=== PATIENT | female | born 1985 | race American Indian/Alaskan Native ===

== ENCOUNTER 2021-05-12 13:56 | Outpatient (REF) | payer MEDICAID, SELFPAY ==
[2021-05-12 14:18] LABS: MANUAL DIFF FLAG NO
[2021-05-12 14:53] LABS: Basophils Percent Auto 0.4 % (0-2); Eosinophils Absolute Auto 0.1 X10*3/uL (0.0-0.4); Eosinophils Percent Auto 2.2 % (0-4); Hematocrit 39.5 % (37.0-47.0); Hemoglobin 12.9 g/dl (12.0-16.0); Imm Gran Abs Auto 0.02 X10*3/uL (0.00-0.03); Imm Gran Pct Auto 0.4 % (0.0-0.4); Lymphocytes Absolute Auto 1.6 X10*3/uL (1.2-4.9); Lymphocytes Percent Auto 28.8 % (20-40); Mean Corpuscular HGB Conc 32.7 g/dl (31.0-35.0); Mean Corpuscular Hemoglobin 30.9 pg (27.0-33.0); Mean Corpuscular Volume 94.7 fL (80.0-98.0); Mean Platelet Volume 12.4 fL (9.4-12.3); Monocytes Absolute Auto 0.4 X10*3/uL (0.1-1.2); Monocytes Percent Auto 7.6 % (2-11); Neutrophils Absolute Auto 3.4 x10*3/uL (2.0-8.3); Neutrophils Percent Auto 60.6 % (45-73); Platelet Count 239 X10*3/uL (160-400); Red Blood Count 4.17 X10*6/uL (4.20-5.50); Red Cell Distribution Width 13.9 % (11.0-16.0); White Blood Count 5.5 X10*3/uL (4.8-10.8)
[2021-05-12 15:22] LABS: Alanine Aminotransferase 13 U/L (0-31); Albumin Level 4.3 g/dL (3.5-5.0); Alkaline Phosphatase 46 U/L (39-117); Anion Gap 11 (12-20); Aspartate Amino Transferase 16 U/L (5-31); Bilirubin Total 1.2 mg/dL (0.0-1.0); Blood Urea Nitrogen 10 mg/dL (9-16); Carbon Dioxide 27 mmol/L (22-29); Chloride 105 mmol/L (96-108); Cholesterol 165 mg/dL; Estimated Glomerular Filt Rate > 60; Glucose Random 87 mg/dL (60-115); HDL Cholesterol 62 mg/dL; LDL Cholesterol Calculated 92 mg/dl; Phosphorus 2.6 mg/dL (2.7-4.5); Potassium 4.6 mmol/L (3.3-5.1); Sodium 138 mmol/L (135-145); Total Protein 7.3 g/dL (6.5-8.0); Triglycerides 59 mg/dL
[2021-05-12 15:29] LABS: Calcium 10.8 mg/dL (8.4-10.2)
[2021-05-12 15:34] LABS: Thyroid Stimulating Hormone 0.58 uIU/mL (0.32-4.0); Vitamin D 25-OH Total 16.3 ng/mL (>30)
[2021-05-13 14:51] LABS: Calcium (PTHI) 10.8 mg/dL (8.6-10.2); PTHI 92 pg/mL (14-64)
== END 2021-05-12 13:57 | disposition home or self-care (01) ==
LOC: HO.LAB 13:56
PROVIDERS: Visit Provider Internal Medicine
DX: Z00.01 Encounter for general adult medical examination with abnormal findings (principal); R63.0 Anorexia; R19.7 Diarrhea, unspecified; E21.3 Hyperparathyroidism, unspecified
CPT/HCPCS: 36415; 80053; 80061; 82306; 83970; 84100; 84443; 85025

== ENCOUNTER → 2021-07-10 08:13 | Outpatient (REF) | payer MEDICAID, SELFPAY ==
--- NOTE | ~2021-07-10 | NM_ITS ---
EXAMINATION: NM PARATHYROID SCAN CLINICAL INFORMATION: Hyperthyroidism. Primary hyperparathyroidism. COMPARISON: No previous thyroid or parathyroid imaging studies are available for comparison. TECHNIQUE: A double radionuclide study of the thyroid bed region and upper chest in multiple projections was performed 4 hours after the oral administration of 959 microcuries I-123 sodium iodide and immediately following the intravenous administration of 25 mCi Tc-99m sestamibi. Repeat imaging was performed 2 hours later. The iodide images were electronically subtracted from the sestamibi images using different weighting factors. FINDINGS: There is homogeneous uptake of radioiodine throughout both lobes. The thyroid gland appears to be normal in size and shape. There are no focal areas of increased or diminished uptake. The trapping function is moderately increased diffusely, without a focal component. Technetium 99m sestamibi images demonstrate homogeneous thyroid activity. There are no focal areas of increased or decreased Technetium 99m sestamibi activity. Computer-generated digital subtraction images reveal no evidence of excess sestamibi activity. NM/NM parathyroid IMPRESSION: No evidence of excess sestamibi activity suggestive of parathyroid adenoma or hyperplasia. There is homogeneous uptake of radioiodine in the thyroid gland which is also normal in size and shape. The trapping function is diffusely increased, and in the clinical setting of hyperthyroidism, this is compatible with the diagnosis of Graves' disease. No thyroid nodules are visualized.
== END ==
LOC: HO.NUCMED 08:13
PROVIDERS: Visit Provider Internal Medicine
DX: E21.0 Primary hyperparathyroidism (principal)
CPT/HCPCS: 78070; A9500; A9516

== ENCOUNTER 2021-09-11 11:45 | Outpatient (REF) | payer MEDICAID, SELFPAY ==
[2021-09-11 13:58] LABS: Thyroid Stimulating Hormone 0.57 uIU/mL (0.32-4.0); Vitamin D 25-OH Total 15.1 ng/mL (>30)
[2021-09-11 14:03] LABS: Calcium 10.1 mg/dL (8.4-10.2); Phosphorus 2.1 mg/dL (2.7-4.5)
[2021-09-14 03:56] LABS: Calcium (PTHI) 12.2 mg/dL (8.6-10.2); PTHI 92 pg/mL (16-77)
== END 2021-09-11 11:46 | disposition home or self-care (01) ==
LOC: HO.LAB 11:45
PROVIDERS: PCP Internal Medicine; Visit Provider Internal Medicine
DX: E21.0 Primary hyperparathyroidism (principal); E55.9 Vitamin D deficiency, unspecified; M25.571 Pain in right ankle and joints of right foot; M96.0 Pseudarthrosis after fusion or arthrodesis
CPT/HCPCS: 36415; 82306; 82310; 83970; 84100; 84443

== ENCOUNTER 2021-09-15 08:15 | Outpatient (REF) | payer MEDICAID, SELFPAY | END 2021-09-15 08:16 | disposition home or self-care (01) | LOC: HO.HOSX 08:15 | PROVIDERS: Visit Provider Physician Assistant | DX: Z13.89 Encounter for screening for other disorder (principal) ==

== ENCOUNTER 2024-05-18 13:47 | Outpatient (REF) | payer MEDICAID, SELFPAY ==
[2024-05-18 14:01] LABS: MANUAL DIFF FLAG NO
[2024-05-18 14:43] LABS: Basophils Percent Auto 0.8 % (0-2); Eosinophils Percent Auto 0.4 % (0-4); Hematocrit 38.8 % (37.0-47.0); Hemoglobin 13.1 g/dl (12.0-16.0); Imm Gran Abs Auto 0.01 X10*3/uL (0.00-0.03); Imm Gran Pct Auto 0.2 % (0.0-0.4); Lymphocytes Absolute Auto 1.6 X10*3/uL (1.2-4.9); Lymphocytes Percent Auto 31.2 % (20-40); Mean Corpuscular HGB Conc 33.8 g/dl (31.0-35.0); Mean Corpuscular Volume 94.6 fL (80.0-98.0); Mean Platelet Volume 11.6 fL (9.4-12.3); Monocytes Absolute Auto 0.3 X10*3/uL (0.1-1.2); Monocytes Percent Auto 5.2 % (2-11); Neutrophils Absolute Auto 3.2 x10*3/uL (2.0-8.3); Neutrophils Percent Auto 62.2 % (45-73); Platelet Count 221 X10*3/uL (160-400); Red Cell Distribution Width 13.9 % (11.0-16.0); White Blood Count 5.2 X10*3/uL (4.8-10.8)
[2024-05-18 15:08] LABS: Parathyroid Hormone Intact 116.9 pg/mL (8.7-77.1)
[2024-05-18 15:10] LABS: Alanine Aminotransferase 18 U/L (0-31); Albumin Level 4.3 g/dL (3.5-5.0); Alkaline Phosphatase 35 U/L (39-117); Anion Gap 7 (12-20); Aspartate Amino Transferase 18 U/L (5-31); Bilirubin Total 1.3 mg/dL (0.0-1.0); Blood Urea Nitrogen 12 mg/dL (9-16); Calcium 9.5 mg/dL (8.4-10.2); Carbon Dioxide 29 mmol/L (22-29); Chloride 107 mmol/L (96-108); Estimated Glomerular Filt Rate > 60; Glucose Random 82 mg/dL (60-115); Phosphorus 2.6 mg/dL (2.7-4.5); Potassium 3.7 mmol/L (3.3-5.1); Sodium 139 mmol/L (135-145); Total Protein 7.2 g/dL (6.5-8.0)
[2024-05-18 15:27] LABS: Vitamin D 25-OH Total 22.8 ng/mL (>30)
== END 2024-05-18 13:48 | disposition home or self-care (01) ==
LOC: HO.LAB 13:47
PROVIDERS: PCP Internal Medicine; Visit Provider Internal Medicine
DX: Z00.00 Encounter for general adult medical examination without abnormal findings (principal); E83.52 Hypercalcemia; F32.2 Major depressive disorder, single episode, severe without psychotic features; Z90.710 Acquired absence of both cervix and uterus
CPT/HCPCS: 36415; 80053; 82306; 83970; 84100; 85025

== ENCOUNTER 2024-06-19 14:06 | Outpatient (AMB) | payer MEDICAID, SELFPAY ==
[2024-06-19 14:32] VITALS: BP 122/82; PULSE 65
--- NOTE | 2024-06-19 14:32 | A.OFFVIS_ITS ---
Vital Signs 06/19/24 14:32 Weight 100 lb 15.547 oz BP 122/82 Blood Pressure Location Lt brachial Position Sitting Pulse 65 Pulse Source Pulse Oximeter Intake Visit Reasons: Hyperparathyroidism Intake Note: Patient present today for Hyperparathyroidism. 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 She is noted to have elevated calcium levels back in April 2021 along with a concurrently elevated PTH of 92. Calcium was 10.8 with an albumin of 4.3, corrected calcium would be 10.5. Vitamin-D level was low at 16.3. Subsequently in June 2021 she had a parathyroid scan which did not identify any parathyroid adenoma or enlargement. Labs 09/11/2021: Showed calcium of 10.1, albumin not given, phosphorus low at 2.1, vitamin-D of 15.1, PTH again elevated at 92, another calcium run with a different assay was 12.2 on that date. Labs most recently 05/18/2024 showed normal kidney function with EGFR greater than 60, calcium normal at 9.5 with an albumin of 4.3, corrected calcium would be 9.2, phosphorus low at 2.6, vitamin-D of 22.8 and PTH of 116.9. In the setting of vitamin-D deficiency, she could have a component of both primary and secondary hyperparathyroidism. No known history of kidney stones. Fracture in right ankle after jumping from third floor, in 2012 No other fractures No family history of kidney stones or calcium problems Prescribed vitamin D 78774 units once weekly on 06/15/24 , hasnt started it yet No calcium supplements No milk, no cheese, no yogurt No constipation. No abd pain. No polyuria. Smokes marijuana daily No tobacco use Alcohol : occasional No drug use Works in [employer] Physical exam General: sitting comfortably in no acute distress HEENT: normocephalic/atraumatic, moist oral mucosa Neck: supple, symmetrical, no thyromegaly , no dorsocervical or supraclavicular fat pads Cardiac: normal heart sounds Pulm: normal breath sounds B/L, no added breath sounds Abd: not distended, no tenderness Extremities: no edema, no signs of myxedema Neuro: AAO x3, Speech: normal, no facial droop, moving all 4 extremities Laboratory Tests 05/12/21 09/11/21 05/18/24 14:16 12:29 13:59 Creatinine 0.83 Estimated GFR > 60 Calcium 10.8 H 10.1 D 9.5 Phosphorus 2.1 L 2.6 L Albumin 4.3 4.3 25-OH Vitamin D Total 16.3 15.1 22.8 L TSH 0.57 PTH Intact 92 H 92 H 116.9 H Calcium (PTH Intact) 10.8 H 12.2 H NM PARATHYROID SCAN 07/10/21 CLINICAL INFORMATION: Hyperthyroidism. Primary hyperparathyroidism. COMPARISON: No previous thyroid or parathyroid imaging studies are available for comparison. TECHNIQUE: A double radionuclide study of the thyroid bed region and upper chest in multiple projections was performed 4 hours after the oral administration of 959 microcuries I-123 sodium iodide and immediately following the intravenous administration of 25 mCi Tc-99m sestamibi. Repeat imaging was performed 2 hours later. The iodide images were electronically subtracted from the sestamibi images using different weighting factors. FINDINGS: There is homogeneous uptake of radioiodine throughout both lobes. The thyroid gland appears to be normal in size and shape. There are no focal areas of increased or diminished uptake. The trapping function is moderately increased diffusely, without a focal component. Technetium 99m sestamibi images demonstrate homogeneous thyroid activity. There are no focal areas of increased or decreased Technetium 99m sestamibi activity. Computer-generated digital subtraction images reveal no evidence of excess sestamibi activity. NM/NM parathyroid IMPRESSION: No evidence of excess sestamibi activity suggestive of parathyroid adenoma or hyperplasia. There is homogeneous uptake of radioiodine in the thyroid gland which is also normal in size and shape. The trapping function is diffusely increased, and in the clinical setting of hyperthyroidism, this is compatible with the diagnosis of Graves' disease. No thyroid nodules are visualized. [facility] Medical History (Updated 06/19/24 @ 15:05 by Frances Rolle MD) Vitamin D deficiency Hyperparathyroidism History of endometriosis Surgical History History of partial hysterectomy Family History Mother Panic attack Father No problems noted. Social History Alcohol intake: current Alcohol intake frequency: holidays/special occasions only Patient Tobacco Use Status: Never used Tobacco Physical Exam Vital Signs: Last Vital Signs Pulse 65 06/19/24 14:32 BP 122/82 06/19/24 14:32 Assessment & Plan Assessment & Plan (1) Hyperparathyroidism: Code(s): E21.3 - Hyperparathyroidism, unspecified Category: Medical Plan: 38-year-old female coming in today for initial evaluation of hyperpar athyroidism. She is noted to have elevated calcium levels back in April 2021 along with a concurrently elevated PTH of 92. Calcium was 10.8 with an albumin of 4.3, corrected calcium would be 10.5. Vitamin-D level was low at 16.3. Subsequently in June 2021 she had a parathyroid scan which did not identify any parathyroid adenoma or enlargement. Labs 09/11/2021: Showed calcium of 10.1, albumin not given, phosphorus low at 2.1, vitamin-D of 15.1, PTH again elevated at 92, another calcium run with a different assay was 12.2 on that date. Labs most recently 05/18/2024 showed normal kidney function with EGFR greater than 60, calcium normal at 9.5 with an albumin of 4.3, corrected calcium would be 9.2, phosphorus low at 2.6, vitamin-D of 22.8 and PTH of 116.9. In the setting of vitamin-D deficiency, she could have a component of both primary and secondary hyperparathyroidism. At this point she is barely taking in any calcium and she is still not started the vitamin-D replacement, her primary care prescribed her vitamin-D 69246 units weekly, I have asked her to start taking it and after 8 weeks of taking in the vitamin-D as well as increasing the calcium intake to 2-3 servings daily of calcium rich foods, we will evaluate her with a 24 hour urine collection as well as repeat blood work. She is not on any thiazide. No known history of kidney stones, no fractures. Kidney function was normal. Looking at her calcium levels on the standard assay, she does not really qualify for surgery. However she has less than 50 years old so she does meet surgical indication based on age. We will also obtain an ultrasound of the kidneys. She did have a parathyroid scan back in 2021 that did not identify any adenoma. Most likely she has underlying primary hyperparathyroidism. Other differential could possibly be [facility], we will evaluated to in 24 hour urine collection. Plan: -start vitamin-D 93602 units weekly -start calcium intake of calcium rich foods 2-3 servings daily to incorporate 1000 mg in diet -after 8 weeks of doing the above, do 24 hour urine collection for 24 hour urine calcium and creatinine and do blood work at the same time with PTH, calcium, albumin, ionized calcium, magnesium, phosphorus, vitamin-D level, kidney function -ordered ultrasound of the kidneys -follow up in 12 weeks to discuss results (2) Vitamin D deficiency: Code(s): E55.9 - Vitamin D deficiency, unspecified Category: Medical Plan: See above Plan See above Orders: Orders Calcium 8 Weeks E21.3 - Hyperparathyroidism, unspecified, E55.9 - Vitamin D deficiency, unspecified Calcium, Ionized 8 Weeks E21.3 - Hyperparathyroidism, unspecified, E55.9 - Vitamin D deficiency, unspecified Phosphorus 8 Weeks E21.3 - Hyperparathyroidism, unspecified, E55.9 - Vitamin D deficiency, unspecified Calcium, 24 Hr Ur 8 Weeks E21.3 - Hyperparathyroidism, unspecified, E55.9 - Vitamin D deficiency, unspecified Magnesium 8 Weeks E21.3 - Hyperparathyroidism, unspecified, E55.9 - Vitamin D deficiency, unspecified Basic Metabolic Panel 8 Weeks E21.3 - Hyperparathyroidism, unspecified, E55.9 - Vitamin D deficiency, unspecified Albumin Level 8 Weeks E21.3 - Hyperparathyroidism, unspecified, E55.9 - Vitamin D deficiency, unspecified Vitamin D 25-OH Total 8 Weeks E21.3 - Hyperparathyroidism, unspecified, E55.9 - Vitamin D deficiency, unspecified Creatinine, 24 Hr Group 8 Weeks E21.3 - Hyperparathyroidism, unspecified, E55.9 - Vitamin D deficiency, unspecified Parathyroid Hormone Intact 8 Weeks E21.3 - Hyperparathyroidism, unspecified, E55.9 - Vitamin D deficiency, unspecified US renal BI Today E21.3 - Hyperparathyroidism, unspecified Patient Instructions: Start vitamin D 74532 units weekly Start 2-3 servings of calcium rich foods daily (milk, yogurt, cheese) After 8 weeks of doing this, do 24 hour urine and same day as you hand in the urine do blood work 24 hr urine collection instructions You have been asked to collect your urine for 24 hours to assess for calcium excretion. You must choose a 24 hour period of time when you will be home. The morning of the first day, DISCARD the FIRST morning void and then note the time. You will collect every single void from then on for 24 hours. For example, if you wake up at 6am and urinate, flush down that void. You will then collect every drop of urine all day and all night through 6am the following day. You will urinate one last time at 6am for the collection. The jug of urine must be kept in the refrigerator until you bring it to the lab.You have been asked to collect your urine for 24 hours to assess for calcium excretion. You must choose a 24 hour period of time when you will be home. The morning of the first day, DISCARD the FIRST morning void and then note the time. You will collect every single void from then on for 24 hours. For example, if you wake up at 6am and urinate, flush down that void. You will then collect every drop of urine all day and all night through 6am the following day. You will urinate one last time at 6am for the collection. The jug of urine must be kept in the refrigerator until you bring it to the lab. We will see you back in 12 weeks to discuss results Do ultrasound of the kidenys , someone will call you to schedule this Iniciar vitamina D 72001 unidades semanales Comience con 2 o 3 porciones diarias de alimentos ricos en calcio (leche, yogur, queso) Despu?s de 8 semanas de hacer esto, noris orina de 24 horas y el mismo d?a que entrega la orina, noris an?lisis de ronnie. Instrucciones para la recolecci?n de orina de 24 horas. Se le maher pedido que recolecte orina rizwana 24 horas para evaluar la excreci?n de calcio. Debe elegir un per?odo de 24 horas en el que estar? en casa. La ma?marci del primer d?a, DESCARTE el PRIMER vac?o de la ma?marci y luego anote la hora. A partir de louis momento, recolectar?s todos los vac?os rizwana 24 horas. Por ejemplo, si te despiertas a las 6 de la ma?marci y orinas, luca louis vac?o. Luego recolectar? cada gota de orina rizwana todo el d?a y toda la noche hasta las 6 a.m. del d?a siguiente. Orinar?s por ?ltima vez a las 6 a. m. para la recolecci?n. La jarra de orina debe guardarse en el refrigerador hasta que la lleve al laboratorio. Se le maher pedido que recolecte orina rizwana 24 horas para evaluar la excreci?n de calcio. Debe elegir un per?odo de 24 horas en el que estar? en casa. La ma?marci del primer d?a, DESCARTE el PRIMER vac?o de la ma?marci y luego anote la hora. A partir de louis momento, recolectar?s todos los vac?os rizwana 24 horas. Por ejemplo, si te despiertas a las 6 de la ma?marci y orinas, luca louis vac?o. Luego recolectar? cada gota de orina rizwana todo el d?a y toda la noche hasta las 6 a.m. del d?a siguiente. Orinar?s por ?ltima vez a las 6 a. m. para la recolecci?n. El frasco de orina debe conservarse en el frigor?fico hasta wolfe llegada al laboratorio. Nos vemos dentro de 12 semanas para discutir los resultados. Haz april ecograf?a de los ri?ones, alguien te llamar? para programarla. Coding Level of Care Code New Pt Level 4 (96648) Diagnoses Hyperparathyroidism E21.3 Vitamin D deficiency E55.9
== END 2024-06-19 15:11 | disposition home or self-care (01) ==
PROVIDERS: PCP Internal Medicine; Visit Provider Student in an Organized Health Care Education/Training Program
DX: E21.3 Hyperparathyroidism, unspecified (principal); E55.9 Vitamin D deficiency, unspecified
CPT/HCPCS: 99204

== ENCOUNTER → 2024-06-19 14:06 | Outpatient (BNVA) | payer MEDICAID, SELFPAY | PROVIDERS: PCP Internal Medicine; Visit Provider Student in an Organized Health Care Education/Training Program | DX: E21.3 Hyperparathyroidism, unspecified (principal); E55.9 Vitamin D deficiency, unspecified | CPT/HCPCS: 99202 ==

== ENCOUNTER 2024-07-05 13:30 | Outpatient (REF) | payer MEDICAID, SELFPAY ==
--- NOTE | ~2024-07-05 | US_ITS ---
EXAMINATION: US KIDNEY BILATERAL HISTORY: E21.3 - Hyperparathyroidism, unspecified TECHNIQUE: Real-time grayscale ultrasound imaging of the kidneys was performed and images were reviewed. COMPARISON: There are no prior studies for comparison. FINDINGS: Right kidney: The right kidney measures 9.5 x 3.0 x 5.0 cm. Renal parenchymal echotexture and thickness are normal. There are cysts in the interpolar region measuring 1.6 x 0.9 x 1.7 cm and 1.3 x 1.1 x 1.4 cm. There are cysts at the lower pole measuring 0.9 x 0.7 x 1.0 cm and 0.9 x 0.8 x 1.2 cm. There is are two nonobstructing stones in the interpolar region measuring 7 x 5 x 6 mm and 4 x 2 x 3 mm. There is no hydronephrosis. Left Kidney: The left kidney measures 9.9 x 4.9 x 4.2 cm. Renal parenchymal echotexture and thickness are normal. There is a 1.8 x 1.8 x 2.1 cm cyst at the upper pole, a 1.2 x 1.0 x 1.1 cm cyst in the interpolar region, and a 1.7 x 1.3 x 1.2 cm cyst at the lower pole. There is a 4 x 3 x 4 mm nonobstructing calculus in the interpolar region and a 5 x 4 mm nonobstructing calculus at the lower pole. There is no hydronephrosis. US/US renal BI IMPRESSION: 1. Bilateral nephrolithiasis as described. No hydronephrosis. 2. Multiple bilateral renal cysts as described. Electronically signed by: Jame Gutierrez MD 07/06/2024 07:55 AM [facility]
== END 2024-07-05 13:31 | disposition home or self-care (01) ==
LOC: HO.US 13:30
PROVIDERS: PCP Internal Medicine; Visit Provider Student in an Organized Health Care Education/Training Program
DX: E21.3 Hyperparathyroidism, unspecified (principal)
CPT/HCPCS: 76775

== ENCOUNTER → 2024-07-05 13:32 | Outpatient (BNV) | payer MEDICAID, SELFPAY | PROVIDERS: PCP Internal Medicine; Visit Provider Radiology Diagnostic Radiology | DX: E21.3 Hyperparathyroidism, unspecified (principal) | CPT/HCPCS: 76775 ==

== ENCOUNTER 2024-08-14 11:58 | Outpatient (REF) | payer MEDICAID, SELFPAY ==
--- NOTE | ~2024-08-14 | XR_ITS ---
EXAMINATION: XR HIP, RIGHT CLINICAL INFORMATION: OA RT HIP COMPARISON: None available. TECHNIQUE: Two views of the right hip. FINDINGS: No acute cortical disruption or malalignment. No lytic or blastic lesion. Preservation of normal joint space. No subcutaneous emphysema. There is prominent transverse processes of L5 into the S1 without gross pseudoarthrosis. XR/XR hip RT min 2V IMPRESSION: No acute fracture or dislocation. Negative x-ray right hip. Electronically signed by: Ollie Burch MD 08/15/2024 10:06 AM [facility]
[2024-08-14 14:37] LABS: Calcium 10.5 mg/dL (8.4-10.2)
[2024-08-14 14:43] LABS: Albumin Level 4.4 g/dL (3.5-5.0); Anion Gap 10 (12-20); Blood Urea Nitrogen 9 mg/dL (9-16); Calcium 10.3 mg/dL (8.4-10.2); Carbon Dioxide 28 mmol/L (22-29); Chloride 106 mmol/L (96-108); Estimated Glomerular Filt Rate > 60; Glucose Random 88 mg/dL (60-115); Magnesium 2.2 mg/dL (1.6-2.6); Potassium 3.9 mmol/L (3.3-5.1); Sodium 140 mmol/L (135-145)
[2024-08-14 14:45] LABS: Parathyroid Hormone Intact 135.6 pg/mL (8.7-77.1)
[2024-08-14 14:58] LABS: Thyroid Stimulating Hormone 0.96 uIU/mL (0.32-4.0); Vitamin D 25-OH Total 45.5 ng/mL (>30)
[2024-08-15 11:17] LABS: Calcium, Ionized 5.5 mg/dL (4.7-5.5)
== END 2024-08-14 11:59 | disposition home or self-care (01) ==
LOC: HO.XRAY 11:58
PROVIDERS: Absent Provider Student in an Organized Health Care Education/Training Program; PCP Internal Medicine; Visit Provider Internal Medicine
DX: M25.551 Pain in right hip (principal); M51.16 Intervertebral disc disorders with radiculopathy, lumbar region; R63.8 Other symptoms and signs concerning food and fluid intake; E21.3 Hyperparathyroidism, unspecified; E55.9 Vitamin D deficiency, unspecified
CPT/HCPCS: 36415; 73502; 80048; 82040; 82306; 82310; 82330; 83735; 83970; 84100; 84443

== ENCOUNTER → 2024-08-14 12:25 | Outpatient (BNV) | payer MEDICAID, SELFPAY | PROVIDERS: Absent Provider Student in an Organized Health Care Education/Training Program; PCP Internal Medicine; Visit Provider Radiology Diagnostic Radiology | DX: M16.11 Unilateral primary osteoarthritis, right hip (principal) | CPT/HCPCS: 73502 ==

== ENCOUNTER 2024-09-11 14:12 | Outpatient (AMB) | payer MEDICAID, SELFPAY ==
--- NOTE | 2024-09-11 14:22 | A.OFFVIS_ITS ---
Vital Signs 09/11/24 14:24 Height 5 ft 2 in Weight 97 lb 0.054 oz BMI 17.7 BP 118/62 Blood Pressure Location Rt brachial Position Sitting Pulse 72 Pulse Source Pulse Oximeter Pulse Oximetry (%) 100 Oxygen Delivery Method Room Air Intake Visit Reasons: Hyperparathyroidism Intake Note: Patient present today for Hyperparathyroidism. County Manager Required: Yes County Manager Services: County Manager Offered & Declined Accompanied by: Self / Same As Patient Allergies morphine [MORPHINE] Allergy (Intermediate, Unverified 06/19/24 14:39) RASH ibuprofen [Motrin] Allergy (Unknown, Verified 06/19/24 14:39) gastritis HPI Comments Details: 38-year-old female here today for follow up of hyperparathyroidism. HPI from initial visit She is noted to have elevated calcium levels back in April 2021 along with a concurrently elevated PTH of 92. Calcium was 10.8 with an albumin of 4.3, corrected calcium would be 10.5. Vitamin-D level was low at 16.3. Subsequently in June 2021 she had a parathyroid scan which did not identify any parathyroid adenoma or enlargement. Labs 09/11/2021: Showed calcium of 10.1, albumin not given, phosphorus low at 2.1, vitamin-D of 15.1, PTH again elevated at 92, another calcium run with a different assay was 12.2 on that date. Labs most recently 05/18/2024 showed normal kidney function with EGFR greater than 60, calcium normal at 9.5 with an albumin of 4.3, corrected calcium would be 9.2, phosphorus low at 2.6, vitamin-D of 22.8 and PTH of 116.9. In the setting of vitamin-D deficiency, she could have a component of both primary and secondary hyperparathyroidism. No known history of kidney stones. Fracture in right ankle after jumping from third floor, in 2013 No other fractures No family history of kidney stones or calcium problems Prescribed vitamin D 78741 units once weekly on 06/15/24 , hasnt started it yet No calcium supplements No milk, no cheese, no yogurt No constipation. No abd pain. No polyuria. Smokes marijuana daily No tobacco use Alcohol : occasional No drug use Works in [employer] Interval history Ultrasound of the kidneys from June 2024 showed bilateral kidney stones Lab work from August 14 showed calcium level elevated at 10.5, albumin of 4.4, corrected calcium would be 10.1, PTH elevated at 135.6, vitamin-D level at 45.5, I will magnesium of 2.2, phosphorus low at 2, normal kidney function Patient completed her 3 month course of vitamin-D 64707 units weekly Physical exam General: sitting comfortably in no acute distress HEENT: normocephalic/atraumatic, moist oral mucosa Neck: supple, symmetrical, no thyromegaly , no dorsocervical or supraclavicular fat pads Cardiac: normal heart sounds Pulm: normal breath sounds B/L, no added breath sounds Abd: not distended, no tenderness Extremities: no edema, no signs of myxedema Neuro: AAO x3, Speech: normal, no facial droop, moving all 4 extremities Laboratory Tests 05/12/21 09/11/21 05/18/24 14:16 12:29 13:59 Creatinine 0.83 Estimated GFR > 60 Calcium 10.8 H 10.1 D 9.5 Phosphorus 2.1 L 2.6 L Albumin 4.3 4.3 25-OH Vitamin D Total 16.3 15.1 22.8 L TSH 0.57 PTH Intact 92 H 92 H 116.9 H Calcium (PTH Intact) 10.8 H 12.2 H Laboratory Tests 08/14/24 12:23 Sodium 140 Potassium 3.9 Creatinine 0.69 Estimated GFR > 60 Calcium 10.5 H Ionized Calcium 5.5 Phosphorus 2.0 L Magnesium 2.2 Albumin 4.4 25-OH Vitamin D Total 45.5 TSH 0.96 PTH Intact 135.6 H EXAMINATION: US KIDNEY BILATERAL 07/05/24 HISTORY: E21.3 - Hyperparathyroidism, unspecified TECHNIQUE: Real-time grayscale ultrasound imaging of the kidneys was performed and images were reviewed. COMPARISON: There are no prior studies for comparison. FINDINGS: Right kidney: The right kidney measures 9.5 x 3.0 x 5.0 cm. Renal parenchymal echotexture and thickness are normal. There are cysts in the interpolar region measuring 1.6 x 0.9 x 1.7 cm and 1.3 x 1.1 x 1.4 cm. There are cysts at the lower pole measuring 0.9 x 0.7 x 1.0 cm and 0.9 x 0.8 x 1.2 cm. There is are two nonobstructing stones in the interpolar region measuring 7 x 5 x 6 mm and 4 x 2 x 3 mm. There is no hydronephrosis. Left Kidney: The left kidney measures 9.9 x 4.9 x 4.2 cm. Renal parenchymal echotexture and thickness are normal. There is a 1.8 x 1.8 x 2.1 cm cyst at the upper pole, a 1.2 x 1.0 x 1.1 cm cyst in the interpolar region, and a 1.7 x 1.3 x 1.2 cm cyst at the lower pole. There is a 4 x 3 x 4 mm nonobstructing calculus in the interpolar region and a 5 x 4 mm nonobstructing calculus at the lower pole. There is no hydronephrosis. US/US renal BI IMPRESSION: 1. Bilateral nephrolithiasis as described. No hydronephrosis. 2. Multiple bilateral renal cysts as described. Electronically signed by: Jame Gutierrez MD 07/06/2024 07:55 AM [facility] [place] PARATHYROID SCAN 07/10/21 CLINICAL INFORMATION: Hyperthyroidism. Primary hyperparathyroidism. COMPARISON: No previous thyroid or parathyroid imaging studies are available for comparison. TECHNIQUE: A double radionuclide study of the thyroid bed region and upper chest in multiple projections was performed 4 hours after the oral administration of 959 microcuries I-123 sodium iodide and immediately following the intravenous administration of 25 mCi Tc-99m sestamibi. Repeat imaging was performed 2 hours later. The iodide images were electronically subtracted from the sestamibi images using different weighting factors. FINDINGS: There is homogeneous uptake of radioiodine throughout both lobes. The thyroid gland appears to be normal in size and shape. There are no focal areas of increased or diminished uptake. The trapping function is moderately increased diffusely, without a focal component. Technetium 99m sestamibi images demonstrate homogeneous thyroid activity. There are no focal areas of increased or decreased Technetium 99m sestamibi activity. Computer-generated digital subtraction images reveal no evidence of excess sestamibi activity. NM/NM parathyroid IMPRESSION: No evidence of excess sestamibi activity suggestive of parathyroid adenoma or hyperplasia. There is homogeneous uptake of radioiodine in the thyroid gland which is also normal in size and shape. The trapping function is diffusely increased, and in the clinical setting of hyperthyroidism, this is compatible with the diagnosis of Graves' disease. No thyroid nodules are visualized. [facility] Medical History Vitamin D deficiency Hyperparathyroidism History of endometriosis Surgical History History of partial hysterectomy Family History Mother Panic attack Father No problems noted. Social History Alcohol intake: current Alcohol intake frequency: holidays/special occasions only Patient Tobacco Use Status: Never used Tobacco Physical Exam Vital Signs: Last Vital Signs Pulse 72 09/11/24 14:24 BP 118/62 09/11/24 14:24 Pulse Ox 100 09/11/24 14:24 Oxygen Delivery Method Room Air 09/11/24 14:24 BMI result Body Mass Index 17.7 Assessment & Plan Assessment & Plan (1) Hyperparathyroidism: Code(s): E21.3 - Hyperparathyroidism, unspecified Category: Medical Plan: 38-year-old female coming in today for initial evaluation of hyperparathyroidism. She is noted to have elevated calcium levels back since April 2021 along with a concurrently elevated PTH of 92. Calcium was 10.8 with an albumin of 4.3, corrected calcium would be 10.5. Vitamin-D level was low at 16.3. Subsequently in June 2021 she had a parathyroid scan which did not identify any parathyroid adenoma or enlargement. Labs 09/11/2021: Showed calcium of 10.1, albumin not given, phosphorus low at 2.1, vitamin-D of 15.1, PTH again elevated at 92, another calcium run with a different assay was 12.2 on that date. Labs 05/18/2024 showed normal kidney function with EGFR greater than 60, calcium normal at 9.5 with an albumin of 4.3, corrected calcium would be 9.2, phosphorus low at 2.6, vitamin-D of 22.8 and PTH of 116.9. We replaced her vitamin-D levels for the past 3 months, and most recently on labs from August 2024 have vitamin-D levels come up to 45, Lab work from August 14 showed calcium level elevated at 10.5, albumin of 4.4, corrected calcium would be 10.1, PTH elevated at 135.6, vitamin-D level at 45.5, magnesium of 2.2, phosphorus low at 2, normal kidney function This rules out secondary hyperparathyroidism. Differentials include primary hyperparathyroidism or FHH. I do not see the results of the 24 hour urine collection even though patient says she did hence that in. We will have her repeat these with the another set of labs. She has poor nutritional intake of calcium even though I told her to start taking 2-3 servings daily last visit, these could falsely lower the levels of calcium in the urine so I told her now to do blood work and urine test in 6 weeks after doing good intake of calcium. Based on her age and nephrolithiasis, she meets criteria for surgery if she has primary hyperparathyroidism. She did have a parathyroid scan back in 2021 that did not identify any adenoma. Plan: -switch to vitamin-D 1000 units daily -start calcium intake of calcium rich foods 2-3 servings daily to incorporate 1000 mg in diet -after 6 weeks of doing the above, do 24 hour urine collection for 24 hour urine calcium and creatinine and do blood work at the same time with PTH, calcium, albumin, ionized calcium, , phosphorus, , kidney function -follow up in 8 weeks to discuss results (2) Vitamin D deficiency: Code(s): E55.9 - Vitamin D deficiency, unspecified Category: Medical Plan: See above Plan See above Orders: Orders Albumin Level Today E21.3 - Hyperparathyroidism, unspecified Calcium Today E21.3 - Hyperparathyroidism, unspecified Calcium, Ionized Today E21.3 - Hyperparathyroidism, unspecified Parathyroid Hormone Intact Today E21.3 - Hyperparathyroidism, unspecified Phosphorus Today E21.3 - Hyperparathyroidism, unspecified Basic Metabolic Panel Today E21.3 - Hyperparathyroidism, unspecified Medications: New cholecalciferol (vitamin D3) 25 mcg PO DAILY 30 caps 7RF Patient Instructions: start vitamin d 1000 units daily calcium intake of calcium rich foods 2-3 servings daily to incorporate 1000 mg in diet by eating cheese and yogurt and drinking milk Do blood work the same morning as you hand in the urine collection 24 hr urine collection instructions You have been asked to collect your urine for 24 hours to assess for calcium excretion. You must choose a 24 hour period of time when you will be home. The morning of the first day, DISCARD the FIRST morning void and then note the time. You will collect every single void from then on for 24 hours. For example, if you wake up at 6am and urinate, flush down that void. You will then collect every drop of urine all day and all night through 6am the following day. You will urinate one last time at 6am for the collection. The jug of urine must be kept in the refrigerator until you bring it to the lab. Follow up in 8 weeks to discuss results Coding Level of Care Code Est Pt Level 3 (50584) Diagnoses Hyperparathyroidism E21.3 Vitamin D deficiency E55.9
[2024-09-11 14:24] VITALS: BP 118/62; PULSE 72; O2SAT 100; BMI 17.7
== END 2024-09-11 15:10 | disposition home or self-care (01) ==
LOC: HO.ENCR 14:13
PROVIDERS: PCP Internal Medicine; Visit Provider Student in an Organized Health Care Education/Training Program
DX: E21.3 Hyperparathyroidism, unspecified (principal); E55.9 Vitamin D deficiency, unspecified
CPT/HCPCS: 99213

== ENCOUNTER → 2024-09-11 14:12 | Outpatient (BNVA) | payer MEDICAID, SELFPAY | PROVIDERS: PCP Internal Medicine; Visit Provider Student in an Organized Health Care Education/Training Program | DX: E21.3 Hyperparathyroidism, unspecified (principal); E55.9 Vitamin D deficiency, unspecified | CPT/HCPCS: 99212 ==

== ENCOUNTER 2024-11-03 14:22 | Outpatient (REF) | payer MEDICAID, SELFPAY ==
[2024-11-03 16:31] LABS: Albumin Level 4.6 g/dL (3.5-5.0); Anion Gap 12 (12-20); Blood Urea Nitrogen 10 mg/dL (9-16); Calcium 10.3 mg/dL (8.4-10.2); Carbon Dioxide 28 mmol/L (22-29); Chloride 106 mmol/L (96-108); Estimated Glomerular Filt Rate > 60; Glucose Random 86 mg/dL (60-115); Potassium 3.8 mmol/L (3.3-5.1); Sodium 142 mmol/L (135-145)
[2024-11-03 16:43] LABS: Parathyroid Hormone Intact 98.1 pg/mL (8.7-77.1)
[2024-11-07 09:37] LABS: Creatinine, mg/dL 87.73
[2024-11-07 13:09] LABS: Calcium, Ionized 5.7 mg/dL (4.7-5.5)
[2024-11-07 13:33] LABS: Creatinine, 24Hr Urine 0.8 G/Day (1.0-2.0); Total Volume 24 Hour Urine 900 mL
[2024-11-08 21:04] LABS: Calcium, 24 Hr Urine 227 mg/24 h; Calcium/Creatinine Ratio 277 mg/g creat (30-275); Creatinine 24Hr Urine 0.82 g/24 h (0.50-2.15)
== END 2024-11-03 14:23 | disposition home or self-care (01) ==
LOC: HO.LAB 14:22
PROVIDERS: PCP Internal Medicine; Visit Provider Student in an Organized Health Care Education/Training Program
DX: E21.3 Hyperparathyroidism, unspecified (principal)
CPT/HCPCS: 36415; 80048; 82040; 82330; 82340; 82570; 83970; 84100

== ENCOUNTER 2024-11-13 12:27 | Outpatient (AMB) | payer MEDICAID, SELFPAY ==
--- NOTE | 2024-11-13 12:28 | A.OFFVIS_ITS ---
Vital Signs 11/13/24 12:29 Height 5 ft 2 in Weight 101 lb 13.657 oz BMI 18.6 BP 90/64 Blood Pressure Location Lt brachial Position Sitting Pulse 68 Pulse Source Pulse Oximeter Intake Visit Reasons: Hyperparathyroidism Intake Note: Patient present today for Hyperparathyroidism. Blueprint Blocker Required: No Accompanied by: Self / Same As Patient Allergies morphine [MORPHINE] Allergy (Intermediate, Unverified 11/13/24 12:33) RASH ibuprofen [Motrin] Allergy (Unknown, Verified 11/13/24 12:33) gastritis Medication List - Last Reconciled 11/13/24 by Frances Rolle MD cholecalciferol (vitamin D3) 25 mcg PO DAILY diclofenac sodium 75 mg PO BID HPI Comments Details: 38-year-old female here today for follow up of hyperparathyroidism. HPI from initial visit She is noted to have elevated calcium levels back in April 2021 along with a concurrently elevated PTH of 92. Calcium was 10.8 with an albumin of 4.3, corrected calcium would be 10.5. Vitamin-D level was low at 16.3. Subsequently in June 2021 she had a parathyroid scan which did not identify any parathyroid adenoma or enlargement. Labs 09/11/2021: Showed calcium of 10.1, albumin not given, phosphorus low at 2.1, vitamin-D of 15.1, PTH again elevated at 92, another calcium run with a different assay was 12.2 on that date. Labs most recently 05/18/2024 showed normal kidney function with EGFR greater than 60, calcium normal at 9.5 with an albumin of 4.3, corrected calcium would be 9.2, phosphorus low at 2.6, vitamin-D of 22.8 and PTH of 116.9. In the setting of vitamin-D deficiency, she could have a component of both primary and secondary hyperparathyroidism. No known history of kidney stones. Fracture in right ankle after jumping from third floor, in 2012 No other fractures No family history of kidney stones or calcium problems Prescribed vitamin D 04055 units once weekly on 06/15/24 , hasnt started it yet No calcium supplements No milk, no cheese, no yogurt No constipation. No abd pain. No polyuria. Smokes marijuana daily No tobacco use Alcohol : occasional No drug use Works in [employer] Interval history 09/11/2024 Ultrasound of the kidneys from June 2024 showed bilateral kidney stones Lab work from August 14 showed calcium level elevated at 10.5, albumin of 4.4, corrected calcium would be 10.1, PTH elevated at 135.6, vitamin-D level at 45.5, I will magnesium of 2.2, phosphorus low at 2, normal kidney function Patient completed her 3 month course of vitamin-D 19545 units weekly Interval history 11/13/2024 Labs done 11/03/2024 showed calcium elevated at 10.3 with albumin of 4.6, corrected calcium would be summer on the higher side of normal around 9.7, ionized calcium elevated at 5.7, phosphorus low at 2, PTH elevated at 98.1, normal kidney function, 24 hour urine calcium on the higher side at 227 with a calcium creatinine ratio elevated of 277, fractional excretion of calcium at 0.018, greater than 0.01 FHH is unlikely. On vitamin D 1000 units daily Milk : half a cup of milk daily, cheese: daily, yogurt: 3-4 times a week Physical exam General: sitting comfortably in no acute distress HEENT: normocephalic/atraumatic, moist oral mucosa Neck: supple, symmetrical, no thyromegaly , no dorsocervical or supraclavicular fat pads Cardiac: normal heart sounds Pulm: normal breath sounds B/L, no added breath sounds Abd: not distended, no tenderness Extremities: no edema, no signs of myxedema Neuro: AAO x3, Speech: normal, no facial droop, moving all 4 extremities Laboratory Tests 05/12/21 09/11/21 05/18/24 14:16 12:29 13:59 Creatinine 0.83 Estimated GFR > 60 Calcium 10.8 H 10.1 D 9.5 Phosphorus 2.1 L 2.6 L Albumin 4.3 4.3 25-OH Vitamin D Total 16.3 15.1 22.8 L TSH 0.57 PTH Intact 92 H 92 H 116.9 H Calcium (PTH Intact) 10.8 H 12.2 H Laboratory Tests 08/14/24 12:23 Sodium 140 Potassium 3.9 Creatinine 0.69 Estimated GFR > 60 Calcium 10.5 H Ionized Calcium 5.5 Phosphorus 2.0 L Magnesium 2.2 Albumin 4.4 25-OH Vitamin D Total 45.5 TSH 0.96 PTH Intact 135.6 H Laboratory Tests 05/23/25 05/23/25 06:30 14:39 Sodium 142 Potassium 3.8 Creatinine 0.68 Estimated GFR > 60 Calcium 10.3 H Ionized Calcium 5.7 H Phosphorus 2.0 L Albumin 4.6 PTH Intact 98.1 H Ur 24 Hour Volume 900 Ur Creatinine mg/dL 87.73 Ur Creatinine 24 Hour 0.8 L Ur Calcium 24 Hr 227 Calcium/Creat 24 Hr 277 H EXAMINATION: US KIDNEY BILATERAL 07/05/24 HISTORY: E21.3 - Hyperparathyroidism, unspecified TECHNIQUE: Real-time grayscale ultrasound imaging of the kidneys was performed and images were reviewed. COMPARISON: There are no prior studies for comparison. FINDINGS: Right kidney: The right kidney measures 9.5 x 3.0 x 5.0 cm. Renal parenchymal echotexture and thickness are normal. There are cysts in the interpolar region measuring 1.6 x 0.9 x 1.7 cm and 1.3 x 1.1 x 1.4 cm. There are cysts at the lower pole measuring 0.9 x 0.7 x 1.0 cm and 0.9 x 0.8 x 1.2 cm. There is are two nonobstructing stones in the interpolar region measuring 7 x 5 x 6 mm and 4 x 2 x 3 mm. There is no hydronephrosis. Left Kidney: The left kidney measures 9.9 x 4.9 x 4.2 cm. Renal parenchymal echotexture and thickness are normal. There is a 1.8 x 1.8 x 2.1 cm cyst at the upper pole, a 1.2 x 1.0 x 1.1 cm cyst in the interpolar region, and a 1.7 x 1.3 x 1.2 cm cyst at the lower pole. There is a 4 x 3 x 4 mm nonobstructing calculus in the interpolar region and a 5 x 4 mm nonobstructing calculus at the lower pole. There is no hydronephrosis. US/US renal BI IMPRESSION: 1. Bilateral nephrolithiasis as described. No hydronephrosis. 2. Multiple bilateral renal cysts as described. Electronically signed by: Jame Gutierrez MD 07/06/2024 07:55 AM [facility] MD PARATHYROID SCAN 07/10/21 CLINICAL INFORMATION: Hyperthyroidism. Primary hyperparathyroidism. COMPARISON: No previous thyroid or parathyroid imaging studies are available for comparison. TECHNIQUE: A double radionuclide study of the thyroid bed region and upper chest in multiple projections was performed 4 hours after the oral administration of 959 microcuries I-123 sodium iodide and immediately following the intravenous administration of 25 mCi Tc-99m sestamibi. Repeat imaging was performed 2 hours later. The iodide images were electronically subtracted from the sestamibi images using different weighting factors. FINDINGS: There is homogeneous uptake of radioiodine throughout both lobes. The thyroid gland appears to be normal in size and shape. There are no focal areas of increased or diminished uptake. The trapping function is moderately increased diffusely, without a focal component. Technetium 99m sestamibi images demonstrate homogeneous thyroid activity. There are no focal areas of increased or decreased Technetium 99m sestamibi activity. Computer-generated digital subtraction images reveal no evidence of excess sestamibi activity. NM/NM parathyroid IMPRESSION: No evidence of excess sestamibi activity suggestive of parathyroid adenoma or hyperplasia. There is homogeneous uptake of radioiodine in the thyroid gland which is also normal in size and shape. The trapping function is diffusely increased, and in the clinical setting of hyperthyroidism, this is compatible with the diagnosis of Graves' disease. No thyroid nodules are visualized. [facility] Medical History Vitamin D deficiency Hyperparathyroidism History of endometriosis Surgical History History of partial hysterectomy Family History Mother Panic attack Father No problems noted. Social History Alcohol intake: current Alcohol intake frequency: holidays/special occasions only Patient Tobacco Use Status: Never used Tobacco Assessment & Plan Assessment & Plan (1) Hyperparathyroidism: Code(s): E21.3 - Hyperparathyroidism, unspecified Category: Medical Plan: 38-year-old female coming in today for initial evaluation of hyperpar athyroidism. She is noted to have elevated calcium levels back since April 2021 along with a concurrently elevated PTH of 92. Calcium was 10.8 with an albumin of 4.3, corrected calcium would be 10.5. Vitamin-D level was low at 16.3. Subsequently in June 2021 she had a parathyroid scan which did not identify any parathyroid adenoma or enlargement. Labs 09/11/2021: Showed calcium of 10.1, albumin not given, phosphorus low at 2.1, vitamin-D of 15.1, PTH again elevated at 92, another calcium run with a different assay was 12.2 on that date. Labs 05/18/2024 showed normal kidney function with EGFR greater than 60, calcium normal at 9.5 with an albumin of 4.3, corrected calcium would be 9.2, phosphorus low at 2.6, vitamin-D of 22.8 and PTH of 116.9. We replaced her vitamin-D levels for the past 3 months, and most recently on labs from August 2024 have vitamin-D levels come up to 45, Lab work from August 14 showed calcium level elevated at 10.5, albumin of 4.4, corrected calcium would be 10.1, PTH elevated at 135.6, vitamin-D level at 45.5, magnesium of 2.2, phosphorus low at 2, normal kidney function This rules out secondary hyperparathyroidism. Differentials include primary hyperparathyroidism or FHH. Labs done 11/03/2024 showed calcium elevated at 10.3 with albumin of 4.6, corrected calcium would be summer on the higher side of normal around 9.7, ionized calcium elevated at 5.7, phosphorus low at 2, PTH elevated at 98.1, normal kidney function, 24 hour urine calcium on the higher side at 227 with a calcium creatinine ratio elevated of 277, fractional excretion of calcium at 0.018, greater than 0.01 FHH is unlikely. Based on her age and hypercalciuria, nephrolithiasis, she meets criteria for surgery if she has primary hyperparathyroidism. She did have a parathyroid scan back in 2021 that did not identify any adenoma. At this point I will refer her to Dr. Kae Tyler at [facility] for surgical evaluation. Plan: -referral sent to Dr. Kae Tyler at [facility] for surgical evaluation for primary hyperparathyroidism -continue vitamin-D 1000 units daily -continue to incorporate calcium intake of calcium rich foods 2-3 servings daily to incorporate 1000 mg in diet -follow up in 4 months (2) Vitamin D deficiency: Code(s): E55.9 - Vitamin D deficiency, unspecified Category: Medical Plan: See above Plan I spent 30 minutes in reviewing the record, seeing the patient and documenting in the medical record. Orders: Referrals General Surgery Referral E21.3 - Hyperparathyroidism, unspecified Patient Instructions: We are sending you to be seen by Dr. Kae Tyler at [facility] in [place], if you dont hear from anyone in 3-4 weeks please call our office to check the status of your referral or their office at [phone] Continue vitamin D 1000 units daily Continue incorporating calcium in diet meaning eating cheese and yogurt and drink milk Lo estamos derivando a april consulta con el Dr. Kae Tyler en [facility]. Si no tiene noticias suyas en 3 o 4 semanas, llame a nuestra oficina para consultar el estado de wolfe derivaci?n o a wolfe oficina al [phone]. Contin?e con la vitamina D 1000 unidades diarias. Contin?e incorporando calcio a wolfe dieta, lo que implica consumir queso, yogur y leche. Coding Level of Care Code Est Pt Level 4 (19699) Diagnoses Hyperparathyroidism E21.3 Vitamin D deficiency E55.9 Time Spent (min) 30
[2024-11-13 12:29] VITALS: BP 90/64; PULSE 68; BMI 18.6
== END 2024-11-13 12:50 | disposition home or self-care (01) ==
LOC: HO.ENCR 12:27
PROVIDERS: PCP Internal Medicine; Visit Provider Student in an Organized Health Care Education/Training Program
DX: E21.3 Hyperparathyroidism, unspecified (principal); E55.9 Vitamin D deficiency, unspecified
CPT/HCPCS: 99214

== ENCOUNTER → 2024-11-13 12:27 | Outpatient (BNVA) | payer MEDICAID, SELFPAY | PROVIDERS: PCP Internal Medicine; Visit Provider Student in an Organized Health Care Education/Training Program | DX: E21.3 Hyperparathyroidism, unspecified (principal); E55.9 Vitamin D deficiency, unspecified | CPT/HCPCS: 99212 ==

== ENCOUNTER 2025-03-15 13:20 | Outpatient (AMB) | payer MEDICAID, SELFPAY ==
[2025-03-15 13:29] VITALS: BP 104/62; PULSE 81; O2SAT 95; BMI 19.7
--- NOTE | 2025-03-15 13:29 | A.OFFVIS_ITS ---
Vital Signs 03/15/25 13:29 Height 5 ft 2 in Weight 107 lb 9.369 oz BMI 19.7 BP 104/62 Blood Pressure Location Lt brachial Position Sitting Pulse 81 Pulse Source Pulse Oximeter Pulse Oximetry (%) 95 Oxygen Delivery Method Room Air Intake Visit Reasons: Hyperparathyroidism Intake Note: Patient present today for Hyperparathyroidism office visit. [employer] Examiner Required: No Accompanied by: Self / Same As Patient Allergies morphine (MORPHINE) Allergy (Intermediate, Unverified 03/15/25 13:33) RASH ibuprofen (Motrin) Allergy (Unknown, Verified 03/15/25 13:33) gastritis Medication List - Last Reconciled 03/15/25 by Frances Rolle MD cholecalciferol (vitamin D3) 25 mcg PO DAILY HPI Comments Details: 39-year-old female here today for follow up of hyperparathyroidism. HPI from initial visit She is noted to have elevated calcium levels back in April 2021 along with a concurrently elevated PTH of 92. Calcium was 10.8 with an albumin of 4.3, corrected calcium would be 10.5. Vitamin-D level was low at 16.3. Subsequently in June 2021 she had a parathyroid scan which did not identify any parathyroid adenoma or enlargement. Labs 09/11/2021: Showed calcium of 10.1, albumin not given, phosphorus low at 2.1, vitamin-D of 15.1, PTH again elevated at 92, another calcium run with a different assay was 12.2 on that date. Labs most recently 05/18/2024 showed normal kidney function with EGFR greater than 60, calcium normal at 9.5 with an albumin of 4.3, corrected calcium would be 9.2, phosphorus low at 2.6, vitamin-D of 22.8 and PTH of 116.9. In the setting of vitamin-D deficiency, she could have a component of both primary and secondary hyperparathyroidism. No known history of kidney stones. Fracture in right ankle after jumping from third floor, in 2012 No other fractures No family history of kidney stones or calcium problems Prescribed vitamin D 92159 units once weekly on 06/15/24 , hasnt started it yet No calcium supplements No milk, no cheese, no yogurt No constipation. No abd pain. No polyuria. Smokes marijuana daily No tobacco use Alcohol : occasional No drug use Works in [employer] Interval history 09/11/2024 Ultrasound of the kidneys from June 2024 showed bilateral kidney stones Lab work from August 14 showed calcium level elevated at 10.5, albumin of 4.4, corrected calcium would be 10.1, PTH elevated at 135.6, vitamin-D level at 45.5, I will magnesium of 2.2, phosphorus low at 2, normal kidney function Patient completed her 3 month course of vitamin-D 77760 units weekly Interval history 11/13/2024 Labs done 11/03/2024 showed calcium elevated at 10.3 with albumin of 4.6, corrected calcium would be summer on the higher side of normal around 9.7, ionized calcium elevated at 5.7, phosphorus low at 2, PTH elevated at 98.1, normal kidney function, 24 hour urine calcium on the higher side at 227 with a calcium creatinine ratio elevated of 277, fractional excretion of calcium at 0.018, greater than 0.01 FHH is unlikely. On vitamin D 1000 units daily Milk : half a cup of milk daily, cheese: daily, yogurt: 3-4 times a week Interval history 03/15/[address] Kae Tyler at [facility] in November 2024, had CT scan, we do not have the results but plan is for surgery on 05/11/25. Taking vitamin D 1000 units daily Physical exam General: sitting comfortably in no acute distress HEENT: normocephalic/atraumatic, moist oral mucosa Neck: supple, symmetrical, no thyromegaly , no dorsocervical or supraclavicular fat pads Cardiac: normal heart sounds Pulm: normal breath sounds B/L, no added breath sounds Abd: not distended, no tenderness Extremities: no edema, no signs of myxedema Neuro: AAO x3, Speech: normal, no facial droop, moving all 4 extremities Laboratory Tests 05/12/21 09/11/21 05/18/24 14:16 12:29 13:59 Creatinine 0.83 Estimated GFR > 60 Calcium 10.8 H 10.1 D 9.5 Phosphorus 2.1 L 2.6 L Albumin 4.3 4.3 25-OH Vitamin D Total 16.3 15.1 22.8 L TSH 0.57 PTH Intact 92 H 92 H 116.9 H Calcium (PTH Intact) 10.8 H 12.2 H Laboratory Tests 08/14/24 12:23 Sodium 140 Potassium 3.9 Creatinine 0.69 Estimated GFR > 60 Calcium 10.5 H Ionized Calcium 5.5 Phosphorus 2.0 L Magnesium 2.2 Albumin 4.4 25-OH Vitamin D Total 45.5 TSH 0.96 PTH Intact 135.6 H Laboratory Tests 11/03/24 11/03/24 06:30 14:39 Sodium 142 Potassium 3.8 Creatinine 0.68 Estimated GFR > 60 Calcium 10.3 H Ionized Calcium 5.7 H Phosphorus 2.0 L Albumin 4.6 PTH Intact 98.1 H Ur 24 Hour Volume 900 Ur Creatinine mg/dL 87.73 Ur Creatinine 24 Hour 0.8 L Ur Calcium 24 Hr 227 Calcium/Creat 24 Hr 277 H EXAMINATION: US KIDNEY BILATERAL 07/05/24 HISTORY: E21.3 - Hyperparathyroidism, unspecified TECHNIQUE: Real-time grayscale ultrasound imaging of the kidneys was performed and images were reviewed. COMPARISON: There are no prior studies for comparison. FINDINGS: Right kidney: The right kidney measures 9.5 x 3.0 x 5.0 cm. Renal parenchymal echotexture and thickness are normal. There are cysts in the interpolar region measuring 1.6 x 0.9 x 1.7 cm and 1.3 x 1.1 x 1.4 cm. There are cysts at the lower pole measuring 0.9 x 0.7 x 1.0 cm and 0.9 x 0.8 x 1.2 cm. There is are two nonobstructing stones in the interpolar region measuring 7 x 5 x 6 mm and 4 x 2 x 3 mm. There is no hydronephrosis. Left Kidney: The left kidney measures 9.9 x 4.9 x 4.2 cm. Renal parenchymal echotexture and thickness are normal. There is a 1.8 x 1.8 x 2.1 cm cyst at the upper pole, a 1.2 x 1.0 x 1.1 cm cyst in the interpolar region, and a 1.7 x 1.3 x 1.2 cm cyst at the lower pole. There is a 4 x 3 x 4 mm nonobstructing calculus in the interpolar region and a 5 x 4 mm nonobstructing calculus at the lower pole. There is no hydronephrosis. US/US renal BI IMPRESSION: 1. Bilateral nephrolithiasis as described. No hydronephrosis. 2. Multiple bilateral renal cysts as described. Electronically signed by: Jame Gutierrez MD 07/06/2024 07:55 AM EST VA PARATHYROID SCAN 07/10/21 CLINICAL INFORMATION: Hyperthyroidism. Primary hyperparathyroidism. COMPARISON: No previous thyroid or parathyroid imaging studies are available for comparison. TECHNIQUE: A double radionuclide study of the thyroid bed region and upper chest in multiple projections was performed 4 hours after the oral administration of 959 microcuries I-123 sodium iodide and immediately following the intravenous administration of 25 mCi Tc-99m sestamibi. Repeat imaging was performed 2 hours later. The iodide images were electronically subtracted from the sestamibi images using different weighting factors. FINDINGS: There is homogeneous uptake of radioiodine throughout both lobes. The thyroid gland appears to be normal in size and shape. There are no focal areas of increased or diminished uptake. The trapping function is moderately increased diffusely, without a focal component. Technetium 99m sestamibi images demonstrate homogeneous thyroid activity. There are no focal areas of increased or decreased Technetium 99m sestamibi activity. Computer-generated digital subtraction images reveal no evidence of excess sestamibi activity. NM/NM parathyroid IMPRESSION: No evidence of excess sestamibi activity suggestive of parathyroid adenoma or hyperplasia. There is homogeneous uptake of radioiodine in the thyroid gland which is also normal in size and shape. The trapping function is diffusely increased, and in the clinical setting of hyperthyroidism, this is compatible with the diagnosis of Graves' disease. No thyroid nodules are visualized. [facility] Medical History Vitamin D deficiency Hyperparathyroidism History of endometriosis Surgical History History of partial hysterectomy Family History Mother Panic attack Father No problems noted. Social History Alcohol intake: current Alcohol intake frequency: holidays/special occasions only Patient Tobacco Use Status: Never used Tobacco Physical Exam Vital Signs: Last Vital Signs Pulse 81 03/15/25 13:29 BP 104/62 03/15/25 13:29 Pulse Ox 95 03/15/25 13:29 Oxygen Delivery Method Room Air 03/15/25 13:29 BMI result Body Mass Index 19.7 Assessment & Plan Assessment & Plan (1) Hyperparathyroidism: Code(s): E21.3 - Hyperparathyroidism, unspecified Category: Medical Plan: 39-year-old female coming in today for follow up of hyperparathyroidism. She is noted to have elevated calcium levels back since April 2021 along with a con currently elevated PTH of 92. Calcium was 10.8 with an albumin of 4.3, corrected calcium would be 10.5. Vitamin-D level was low at 16.3. Subsequently in June 2021 she had a parathyroid scan which did not identify any parathyroid adenoma or enlargement. Labs 09/11/2021: Showed calcium of 10.1, albumin not given, phosphorus low at 2.1, vitamin-D of 15.1, PTH again elevated at 92, another calcium run with a different assay was 12.2 on that date. Labs 05/18/2024 showed normal kidney function with EGFR greater than 60, calcium normal at 9.5 with an albumin of 4.3, corrected calcium would be 9.2, phosphorus low at 2.6, vitamin-D of 22.8 and PTH of 116.9. We replaced her vitamin-D levels for the past 3 months, and most recently on labs from August 2024 have vitamin-D levels come up to 45, Lab work from August 14 showed calcium level elevated at 10.5, albumin of 4.4, corrected calcium would be 10.1, PTH elevated at 135.6, vitamin-D level at 45.5, magnesium of 2.2, phosphorus low at 2, normal kidney function This rules out secondary hyperparathyroidism. Differentials include primary hyperparathyroidism or FHH. Labs done 11/03/2024 showed calcium elevated at 10.3 with albumin of 4.6, corrected calcium would be summer on the higher side of normal around 9.7, ionized calcium elevated at 5.7, phosphorus low at 2, PTH elevated at 98.1, normal kidney function, 24 hour urine calcium on the higher side at 227 with a calcium creatinine ratio elevated of 277, fractional excretion of calcium at 0.018, greater than 0.01 FHH is unlikely. Based on her age and hypercalciuria, nephrolithiasis, she meets criteria for surgery with workup consistent with primary hyperparathyroidism. She did have a parathyroid scan back in 2021 that did not identify any adenoma. She had surgical evaluation with Dr. Pal to be with [facility] in November 2024, also underwent a CT scan, I do not have the results of these, but plan is for moving ahead with surgery on 05/11/2025.. She will meet with us 6 weeks postoperatively with blood work prior. At this time I am also repeating blood work at [facility]. Plan: -ordered calcium, albumin, PTH, ionized calcium, creatinine, phosphorus to be done at [facility], patient given papers, -follow up with Dr. Kae Tyler at [facility] for surgery scheduled on 05/11/2025 -continue vitamin-D 1000 units daily -continue to incorporate calcium intake of calcium rich foods 2-3 servings daily to incorporate 1000 mg in diet -we will need follow up 6 weeks postoperatively with labs done prior (2) Vitamin D deficiency: Code(s): E55.9 - Vitamin D deficiency, unspecified Category: Medical Plan: See above Plan See above Orders: Orders Calcium Today E21.3 - Hyperparathyroidism, unspecified, E55.9 - Vitamin D deficiency, unspecified Vitamin D 25-OH Total Today E21.3 - Hyperparathyroidism, unspecified, E55.9 - Vitamin D deficiency, unspecified Creatinine Today E21.3 - Hyperparathyroidism, unspecified, E55.9 - Vitamin D deficiency, unspecified Albumin Level Today E21.3 - Hyperparathyroidism, unspecified, E55.9 - Vitamin D deficiency, unspecified Phosphorus Today E21.3 - Hyperparathyroidism, unspecified, E55.9 - Vitamin D deficiency, unspecified Parathyroid Hormone Intact Today E21.3 - Hyperparathyroidism, unspecified, E55.9 - Vitamin D deficiency, unspecified Calcium, Ionized Today E21.3 - Hyperparathyroidism, unspecified, E55.9 - Vitamin D deficiency, unspecified Medications: Refilled cholecalciferol (vitamin D3) 25 mcg PO DAILY 30 caps 10RF Coding Level of Care Code Est Pt Level 3 (07813) Diagnoses Hyperparathyroidism E21.3 Vitamin D deficiency E55.9
== END 2025-03-15 13:55 | disposition home or self-care (01) ==
LOC: HO.ENCR 13:21
PROVIDERS: PCP Internal Medicine; Visit Provider Student in an Organized Health Care Education/Training Program
DX: E21.3 Hyperparathyroidism, unspecified (principal); E55.9 Vitamin D deficiency, unspecified
CPT/HCPCS: 99213

== ENCOUNTER → 2025-03-15 13:20 | Outpatient (BNVA) | payer MEDICAID, SELFPAY | PROVIDERS: PCP Internal Medicine; Visit Provider Student in an Organized Health Care Education/Training Program | DX: E21.3 Hyperparathyroidism, unspecified (principal); E55.9 Vitamin D deficiency, unspecified | CPT/HCPCS: 99212 ==